=== PATIENT | female | born 1975 | race Caucasian/White ===

== ENCOUNTER 2016-08-01 14:02 | Emergency (ER) | payer OTHER ==
[2016-08-01 14:12] VITALS: TEMP 98.2; O2SAT 92
[2016-08-01] MEDS ORDERED: ONDANSETRON HCL 4 MG/2 ML SOL IV ONE (14:24)
[2016-08-01] MEDS ORDERED: SODIUM CHLORIDE 0.9% 1000ML 1,000 ML IV SCH (14:30)
[2016-08-01 14:57] LABS: BASOPHILS % (AUTO) 0 % (0-3); EOSINOPHILS % (AUTO) 1 % (0-9); HEMATOCRIT 37 % (35-47); MEAN CORPUSCULAR HGB CONC 34.9 gm/dl (32.0-36.0); MEAN CORPUSCULAR VOLUME 84 fL (81-99); MONOCYTES % (AUTO) 2.8 % (0-12); NEUTROPHILS % (AUTO) 88.4 % (37-80)
[2016-08-01 15:14] LABS: CALCIUM 8.8 mg/dl (8.5-10.1); POTASSIUM 3.8 mMol/L (3.5-5.1)
[2016-08-01 15:29] LABS: AMPHETAMINES NEGATIVE (NEGATIVE); METHADONE NEGATIVE (NEGATIVE); OPIATES(OP13) NEGATIVE (NEGATIVE); OXYCODONE(OXY) NEGATIVE (NEGATIVE); PROPOXYPHENE(PPX) NEGATIVE (NEGATIVE); TRICYCLIC ANTIDEPRESSANTS NEGATIVE (NEGATIVE)
[2016-08-01 15:46] VITALS: PULSE 97
[2016-08-01 16:26] VITALS: BP 155/79; RESP 14
== END 2016-08-01 16:35 | disposition short-term general hospital (02) ==
LOC: ED 14:02
DX: R45.851 Suicidal ideations (principal); F32.9 Major depressive disorder, single episode, unspecified
CPT/HCPCS: 36415; 80053; 80305; 80307; 84703; 85025; 99284; 99285; A6402

== ENCOUNTER 2017-12-25 17:37 | Emergency (ER) | payer OTHER ==
[2017-12-25 17:54] VITALS: RESP 20; TEMP 96.9; O2SAT 97
[2017-12-25] MEDS ORDERED: APAP/HYDROCODONE 1 EACH TABLET PO ONE (18:31)
[2017-12-25] MEDS ORDERED: CLINDAMYCIN HYDROCHLORIDE 150 MG CAP PO SCH (18:45)
[2017-12-25 18:49] VITALS: BP 133/86; PULSE 79
[2017-12-25] MEDS ORDERED: APAP/HYDROCODONE 1 EACH TABLET ONE (18:52)
[2017-12-25] MEDS ORDERED: CIPROFLOXACIN HCL 500 MG TAB PO ONE (19:05)
[2017-12-25] MEDS ORDERED: CIPROFLOXACIN HCL 500 MG TAB PO SCH (19:15)
== END 2017-12-25 19:14 | disposition home or self-care (01) ==
LOC: ED 17:37
DX: K08.89 Other specified disorders of teeth and supporting structures (principal); K04.7 Periapical abscess without sinus; J01.00 Acute maxillary sinusitis, unspecified; I10 Essential (primary) hypertension
CPT/HCPCS: 99282; A9270-GY